=== PATIENT | male | born 1940 | race Caucasian/White ===

== ENCOUNTER → 2017-10-08 | Outpatient (CLI) | payer MEDICARE, OTHER ==
[~2017-10-08] MED LIST: ALL300 PO; ALLO-1 PO; BIS10S PR; CALC-649 PO; CALCIUM; CEP500 PO; CEPH500T7 PO; CHONDROITIN; FISHOIL; HYDR-385 PO; IRO150 PO; LOR5/325 PO; LOR7.5/325 PO; LUTE10TA3 PO; LUTEIN; LYSI500T34 PO; LYSINE; MAGNESIUM; MOM PO; MULT-820 PO; RIV10 PO; RIVA10TA PO; TRIO80T TOP
--- NOTE | 2017-10-08 11:50 | EKG ---
FACILITY: [facility] PATIENT NAME: NEENA POE : [id number] MR: [id number]: [id number] EXAM DATE: ORDERING PHYSICIAN: MARCY SZYMANSKI TECHNOLOGIST: GASTON Ramirez Reason : PREOP-METATARSAL Blood Pressure : / mmHG Vent. Rate : 052 BPM Atrial Rate : 052 BPM P-R Int : 226 ms QRS Dur : 088 ms QT Int : 388 ms P-R-T Axes : 056 081 016 degrees QTc Int : 360 ms Sinus bradycardia with marked sinus arrhythmia with 1st degree AV block Otherwise normal ECG No previous ECGs available Referred By: NESSA Confirmed By:
== END ==
LOC: LAB 11:19
PROVIDERS: ATTEND Anesthesiology
DX: Z01.812 Encounter for preprocedural laboratory examination (principal); Z01.810 Encounter for preprocedural cardiovascular examination; M21.622 Bunionette of left foot; R00.1 Bradycardia, unspecified; I44.0 Atrioventricular block, first degree
CPT/HCPCS: 36415; 82040; 82247; 82310; 82374; 82435; 82565; 82947; 84075; 84132; 84155; 84295; 84450; 84460; 84520; 93005

== ENCOUNTER → 2018-12-10 | Outpatient (CLI) | payer MEDICARE, OTHER ==
[~2018-12-10] MED LIST changes: +ALLO-119 PO; +ATOR10TA24 PO; +MUPI22OI28 TP
[2018-12-10 15:19] LABS: LDL CHOLESTEROL 67 mg/dl
== END ==
LOC: LAB 14:35
PROVIDERS: ATTEND Internal Medicine Cardiovascular Disease
DX: I48.91 Unspecified atrial fibrillation (principal)
CPT/HCPCS: 36415; 82040; 82247; 82310; 82374; 82435; 82465; 82565; 82947; 83718; 84075; 84132; 84155; 84295; 84450; 84460; 84478; 84520

== ENCOUNTER → 2019-02-02 | Outpatient (CLI) | payer MEDICARE, OTHER | LOC: RESP 00:35 | PROVIDERS: ATTEND Internal Medicine Cardiovascular Disease | DX: Z02.9 Encounter for administrative examinations, unspecified (principal) ==

== ENCOUNTER → 2019-02-06 | Outpatient (CLI) | payer MEDICARE, OTHER | LOC: RESP 02:08 | PROVIDERS: ATTEND Internal Medicine Cardiovascular Disease | DX: R07.9 Chest pain, unspecified (principal) | CPT/HCPCS: 78452; 93017; A9500 ==